=== PATIENT | male | born 1960 | race Caucasian/White ===

== ENCOUNTER 2017-12-26 05:30 | Day surgery (SDC) | payer BC ==
[2017-12-26] MEDS ORDERED: KETOROLAC 30 MG/ML VIAL IVP ONE (05:31)
[2017-12-26] MEDS ORDERED: BUPIVACAINE 0.25% W/EPI MPF 30ML VIAL IVP ONE (05:31)
[2017-12-26] MEDS ORDERED: LIDOCAINE 2% MDV (20MG/ML) 20ML VIAL IV ONE (05:31)
[2017-12-26] MEDS ORDERED: MIDAZOLAM HCL 2MG/2ML VIAL IV ONE (05:31)
[2017-12-26] MEDS ORDERED: PROPOFOL 10 MG/ML VIAL IV ONE (05:31)
[2017-12-26] MEDS ORDERED: SEVOFLURANE 250 ML INH ONE (05:31)
[2017-12-26] MEDS ORDERED: ONDANSETRON HCL IV 4 MG/2 ML VIAL IVP ONE (05:31)
[2017-12-26] MEDS ORDERED: FENTANYL PF 100MCG/2ML VIAL IV ONE (05:31)
[2017-12-26] MEDS ORDERED: HYDROCODONE/APAP 7.5/325MG TABLET PO ONE (05:31)
[2017-12-26] MEDS ORDERED: ACETAMINOPHEN 1,000 MG/100 ML BTL IV ONE (06:00)
--- NOTE | 2017-12-29 13:10 | Operative Note ---
DATE OF SURGERY: 12/26/2017 Surgeon: Edgar Jenkins DO Referring physician: To Franklin MD, FACP PREOPERATIVE DIAGNOSES: 1. Torn medial meniscus of the right knee. 2. Chondromalacia of the right knee. POSTOPERATIVE DIAGNOSES: 1. Torn medial meniscus of the right knee. 2. Chondromalacia of the right knee. OPERATION: Arthroscopic partial medial meniscectomy right knee. Anesthesia: General. PROCEDURE: This 57-year-old male was taken to the operating room and placed in the supine position on the operating room table, where general anesthesia was induced. The right lower extremity was elevated, exsanguinated and the tourniquet inflated to 300 mmHg. Arthroscopic knee kulkarni applied. The right knee prepped with Hibiclens and draped in the usual sterile fashion. An inferior lateral portal was established for the 4 mm arthroscope and initial evaluation of the joint demonstrated normal appearance of the suprapatellar pouch, very mild grade 2 chondromalacia of the medial facet of the patella and median ridge was identified, but it was not grossly unstable and not further disturbed. Through an inferior medial portal, this was probed. The trochlea appeared normal. The medial gutter was examined, found to be normal. The medial compartment entered and a flap tear of the posterior horn of the medial meniscus was present. The flap was based medially and we resected back to the apex of the tear, which was at approximately the 1:30 position and utilizing the basket forceps and the rotating shaver, we resected back to the apex of the tear and then tapered in each direction to form a smooth contoured surface. This was then reprobed and confirmed to be stable. The intracondylar notch was examined and found to be normal. The medial compartment was entered and probing of the medial meniscus and medial compartment did not reveal any pathology. The joint was then copiously irrigated and suctioned. The instruments were removed. The portals infiltrated with 0.25% Marcaine with epinephrine. Sterile dressings applied. Tourniquet and knee kulkarni released. The patient was taken to the recovery room in satisfactory condition. GROSS PATHOLOGY: The joint demonstrated a tear of the posterior horn of the medial meniscus, a relatively large flap-type tear was present and minimal chondromalacia of the patella also identified grade 2. MTDD
== END 2017-12-26 09:05 | disposition home or self-care (01) ==
LOC: SUR 05:30
PROVIDERS: ATTEND Orthopaedic Surgery
DX: S83.241A Other tear of medial meniscus, current injury, right knee, initial encounter (principal); M94.261 Chondromalacia, right knee; I10 Essential (primary) hypertension
CPT/HCPCS: 29881; 01400; J1885; J2405; J3010